=== PATIENT | female | born 1975 | race Caucasian/White ===

== ENCOUNTER 2020-03-03 22:26 | Emergency (ER) | payer OTHER, SELFPAY ==
[~2020-03-03] VITALS: Ht 167.6 cm; Wt 89.4 kg
[2020-03-03 22:26] VITALS: BP 152/96
--- NOTE | 2020-03-03 22:30 | NUR ---
PT TO A/W IN TENT FOR MEDICAL SCREENING. PT WEARING MASK.
--- NOTE | 2020-03-03 23:20 | NUR ---
COVID SWAB COLLECTED.
--- NOTE | 2020-03-03 23:22 | NUR ---
Patient discharged with v/s stable. Written and verbal after care instructions given and explained. Patient verbalized understanding. Ambulatory with steady gait. All questions addressed prior to discharge. Advised to follow up with PMD.
== END 2020-03-03 23:22 | disposition home or self-care (01) ==
LOC: EEVIPCON 22:26 → MED 22:26
DX: B34.9 Viral infection, unspecified (principal); Z20.828 Contact with and (suspected) exposure to other viral communicable diseases; Z88.0 Allergy status to penicillin
CPT/HCPCS: 99283; U0003